=== PATIENT | female | born 1960 | race Caucasian/White ===

== ENCOUNTER 2021-05-30 04:03 | Emergency (ER) | payer MEDICAID ==
[~2021-05-30] VITALS: Ht 157.5 cm; Wt 63.7 kg
[2021-05-30 04:06] VITALS: BP 159/108
[2021-05-30] MEDS ORDERED: MORPHINE SULFATE 4 MG/ML SYRINGE IM ONE (05:00)
[2021-05-30] MEDS ORDERED: ONDANSETRON HCL 4 MG/2 ML VIAL IM ONE (05:00)
== END 2021-05-30 06:57 | disposition home or self-care (01) ==
LOC: EMS 04:05
DX: S70.02XA Contusion of left hip, initial encounter (principal); W01.0XXA Fall on same level from slipping, tripping and stumbling without subsequent striking against object, initial encounter; Y93.89 Activity, other specified; Y92.89 Other specified places as the place of occurrence of the external cause; Y99.8 Other external cause status
CPT/HCPCS: 73521; 73552; 73700; 96372; 99284; J2270; J2405

== ENCOUNTER 2021-07-05 02:44 | Emergency (ER) | payer MEDICAID ==
[~2021-07-05] VITALS: Ht 157.5 cm; Wt 66.4 kg
[2021-07-05] MEDS ORDERED: SIMV-259 PO (03:00)
[2021-07-05] MEDS ORDERED: HYDROCODONE/ACETAMINOPHEN 5-325 MG TABLET PO ONE (03:00)
[2021-07-05] MEDS ORDERED: LISI-892 PO (03:00)
[2021-07-05] MEDS ORDERED: KETOROLAC TROMETHAMINE 30 MG/ML VIAL IM ONE (04:00)
[2021-07-05 04:30] VITALS: BP 143/72
== END 2021-07-05 05:48 | disposition home or self-care (01) ==
LOC: EMS 02:45
DX: S70.01XA Contusion of right hip, initial encounter (principal); S00.211A Abrasion of right eyelid and periocular area, initial encounter; W01.198A Fall on same level from slipping, tripping and stumbling with subsequent striking against other object, initial encounter; Y93.89 Activity, other specified; Y92.89 Other specified places as the place of occurrence of the external cause; Y99.8 Other external cause status
CPT/HCPCS: 73502; 96372; 99283; J1885